=== PATIENT | female | born 1965 | race Caucasian/White ===

== ENCOUNTER 2017-11-02 08:52 | Emergency (ER) | payer MEDICAID ==
--- NOTE | 2017-11-02 09:25 | EDPHY ---
H & P Stated Complaint: Increased anxiety, nervous, vomting;more stress w/new job Source: Patient Exam Limitations: No limitations - Personal History LMP (Females 10-55): Post Menopausal Current Tetanus Diphtheria and Acellular Pertussis (TDAP): Yes - Medical/Surgical History Hx Asthma: No Hx Chronic Respiratory Disease: No Hx Diabetes: No Hx Cardiac Disease: No Hx Renal Disease: No Hx Cirrhosis: No Hx Alcoholism: No Other PMH: thyroid. bipolar. "non sz epilepsy" - Social History Smoking Status: Never smoked Alcohol Use: Sober Drug Use: None Time Seen by Provider: 11/02/17 09:08 HPI/ROS: CHIEF COMPLAINT: Anxiety HISTORY OF PRESENT ILLNESS: The patient is a 52-year-old female with a history of bipolar and pseudoseizures who comes to the emergency department with multiple complaints. She states that she started a new job at a [employer] a couple of weeks ago but has had severe anxiety and panic attacks ever since. She states that she feels extremely dehydrated and she is not getting any sleep. She states that she vomited twice yesterday but does not have any abdominal pain or nausea today. She states that she was late every day to work on her 1st week because she was having trouble deciding how to get dressed or how to put on makeup. She states that she ran into a school bus [address] to work. She states that she has painters in her house that are stealing things from her and are doing a horrible job with the painting. She states that her mom last year around this time. She complains that she does not have any wifi access in her house and states that she was extremely anxious when she got lost on the way to the hospital this morning. She denies any recent drug or alcohol use. She denies any medication changes. REVIEW OF SYSTEMS: Constitutional: denies: chills, fever, recent illness, recent injury EENTM: denies: blurred vision, double vision, nose congestion Respiratory: denies: cough, shortness of breath Cardiac: denies: chest pain, irregular heart rate, lightheadedness, palpitations Gastrointestinal/Abdominal: denies: abdominal pain, diarrhea, nausea, vomiting, blood streaked stools Genitourinary: denies: dysuria, frequency, hematuria, pain Musculoskeletal: denies: joint pain, muscle pain Skin: denies: lesions, rash, jaundice, bruising Neurological: denies: headache, numbness, paresthesia, tingling, dizziness, weakness Hematologic/Lymphatic: denies: blood clots, easy bleeding, easy bruising Immunologic/allergic: denies: HIV/AIDS, transplant EXAM: GENERAL: Well-appearing, well-nourished and in no acute distress. HEAD: Atraumatic, normocephalic. EYES: Pupils equal round and reactive to light, extraocular movements intact, sclera anicteric, conjunctiva are normal. ENT: TMs normal, nares patent, oropharynx clear without exudates. Slightly dry mucous membranes. NECK: Normal range of motion, supple without lymphadenopathy or JVD. LUNGS: Breath sounds clear to auscultation bilaterally and equal. No wheezes rales or rhonchi. HEART: Regular rate and rhythm without murmurs, rubs or gallops. ABDOMEN: Soft, nontender, normoactive bowel sounds. No guarding, no rebound. No masses appreciated. BACK: No CVA tenderness, no spinal tenderness, step-offs or deformities EXTREMITIES: Normal range of motion, no pitting or edema. No clubbing or cyanosis. NEUROLOGICAL: Cranial nerves II through XII grossly intact. Normal speech, normal gait. 5/5 strength, normal movement in all extremities, normal sensation PSYCH: Anxiety SKIN: Warm, dry, normal turgor, no visible rashes or lesions. (Newton Lewis) Constitutional: Initial Vital Signs Temperature (C) 36.4 C 11/02/17 08:59 Heart Rate 86 11/02/17 08:59 Respiratory Rate 18 11/02/17 08:59 Blood Pressure 117/91 H 11/02/17 08:59 O2 Sat (%) 98 11/02/17 08:59 O2 Delivery Mode Room Air Allergies/Adverse Reactions: ativan Allergy (Severe, Uncoded 11/02/17 08:56) "It'll kill me" Home Medications: Medication Instructions Recorded Amphet Asp and D/Amphet [Adderall 10 mg PO 11/02/17 10 MG (*)] GABAPENTIN 400 mg PO 11/02/17 Levothyroxine [Synthroid 100 mcg 100 mcg PO DAILY06 11/02/17 (*)] Melatonin [Melatonin 1 mg] 1 mg PO 11/02/17 Temazepam [Restoril 15 MG (*)] 15 mg PO 11/02/17 buPROPion [Wellbutrin 75mg (*)] 75 mg PO 11/02/17 Medical Decision Making - Diagnostics EKG Interpretation: An EKG obtained and was read and documented in trace view. Please see trace view for full reading and report. Sinus rhythm, no acute ischemic changes ( Newton Lewis) ED Course/Re-evaluation: 10:40 a.m. The patient is medically cleared for psychiatric evaluation. She is here voluntarily and is not on a hold. 3:00 p.m. care transferred to Dr. Parrish Killian, pending evaluation. (Newton Lewis) Differential Diagnosis: Partial list of the Differential diagnosis considered include but were not limited to; anxiety, depression, bipolar and although unlikely based on the history and physical exam, I also considered infection, acute coronary disease, medication reaction, substance abuse. I discussed these differential diagnoses and the plan with the [patient] as well as the usual and expected course. The [ patient understands] that the diagnosis is provisional and that in medicine we are not always correct and that further workup is often warranted. Usual and customary warnings were given. All of the [patient's] questions were answered. The [patient was] instructed to return to the emergency department should the symptoms at all worsen or return, otherwise to followup with the physician as we discussed. (Newton Lewis) Other Provider: Patient has been evaluated by mental health provider. They recommend placing an M1 and finding inpatient placement for hypomania. (Parrish Killian) 22:10 care assumed by me from Dr. Killian pending placement. [id number] patient signed out to Dr. Kincaid pending placement. No issues during my care this patient overnight. (Jorge Huff) - Data Points Laboratory Results: Laboratory Results 11/02/17 09:30 11/02/17 09:30 Medications Given: Discontinued Medications Acetaminophen (Tylenol) 1,000 mg PO EDNOW ONE Stop: 11/02/17 21:00 Last Admin: 11/02/17 21:01 Dose: 1,000 mg Clonazepam (Klonopin) 4 mg PO EDNOW ONE Stop: 11/02/17 22:06 Last Admin: 11/02/17 22:23 Dose: 4 mg Gabapentin (Neurontin) 600 mg PO EDNOW ONE Stop: 11/02/17 22:07 Last Admin: 11/02/17 22:23 Dose: 600 mg Melatonin (Melatonin) 6 mg PO EDNOW ONE Stop: 11/02/17 21:01 Last Admin: 11/02/17 22:23 Dose: 6 mg Departure - Departure Disposition: Other Psych, Not [place] Clinical Impression: Hypomania Condition: Fair Referrals: NONE *PRIMARY CARE P,. [Primary Care Provider] - As per Instructions
--- NOTE | 2017-11-02 09:35 | CPEKG ---
Heart Rate: 79 RR Interval: 759 P-R Interval: 156 QRSD Interval: 84 QT Interval: 376 QTC Interval: 432 P [place]: 40 QRS [place]: 48 T Wave [place]: 37 EKG Severity - NORMAL ECG - EKG Impression: SINUS RHYTHM Electronically Signed By: Newton Lewis 02-Nov-2017 09:38:59
[2017-11-02 09:42] LABS: % IMMATURE GRANULYOCYTES 0.2 % (0.0-1.1); ABSOLUTE IMMATURE GRANULOCYTES 0.01 10^3/uL (0.00-0.10); ADD DIFF? NO; ADD MORPH? NO; ADD SCAN? NO; ATYPICAL LYMPHOCYTE FLAG 0 (0-99); FRAGMENT RBC FLAG 0 (0-99); HEMOGLOBIN 13.8 g/dL (12.6-16.3); LEFT SHIFT FLG 0 (0-99); LIPEMIA HEMOLYSIS FLAG 90 (0-99); MEAN CELL HEMOGLOBIN 31.1 pg (27.9-34.1); MEAN CELL HEMOGLOBIN CONCENTR. 34.5 g/dL (32.4-36.7); MEAN CELL VOLUME 90.1 fL (81.5-99.8); MEAN PLATELET VOLUME 10.8 fL (8.7-11.7); PLATELET CLUMPS FLAG 0 (0-99); PLATELET COUNT 189 10^3/uL (150-400); RED BLOOD CELL COUNT 4.44 10^6/uL (4.18-5.33)
[2017-11-02 10:05] LABS: ANION GAP 12 mEq/L (8-16); CALCIUM 10.1 mg/dL (8.5-10.4); CARBON DIOXIDE 22 mEq/l (22-31); CHLORIDE 107 mEq/L (97-110); ETHANOL SERUM < 10 mg/dL (0-10); GLOMERULAR FILTRATION RATE 58; GLUCOSE 101 mg/dL (70-100); POTASSIUM 3.8 mEq/L (3.5-5.2); SODIUM 141 mEq/L (134-144)
[2017-11-02] MEDS ORDERED: ACETAMINOPHEN 500 MG TAB ONE (20:54)
[2017-11-02] MEDS ORDERED: POLYETHYLENE GLYCOL 3350 17 GM PKT ONE (20:55)
[2017-11-02] MEDS ORDERED: ACETAMINOPHEN 500 MG TAB PO ONE (20:59)
[2017-11-02] MEDS ORDERED: MELATONIN 3 MG TAB PO ONE (21:00)
[2017-11-02] MEDS ORDERED: clonazePAM 1 MG TAB PO ONE (22:05)
[2017-11-02] MEDS ORDERED: GABAPENTIN 300 MG CAP PO ONE (22:06)
[2017-11-02 23:05] VITALS: PULSE 72; RESP 14
[2017-11-03 05:30] VITALS: BP 106/62; TEMP 97.9; O2SAT 97
== END 2017-11-03 02:58 ==
DX: F30.8 Other manic episodes (principal)
CPT/HCPCS: 80305; G0480